=== PATIENT | female | born 1930 | race Caucasian/White ===

== ENCOUNTER 2019-04-13 15:36 | Inpatient (IN) | payer MEDICARE ==
[~2019-04-13] VITALS: Ht 162.5 cm; Wt 69.4 kg
[2019-04-13] MEDS ORDERED: VITAMIN D310000 UNI1 PO (16:47)
[2019-04-13] MEDS ORDERED: ZOCOR10 MG PO (16:48)
[2019-04-13] MEDS ORDERED: EXELON1 EAC1 T (16:48)
[2019-04-13] MEDS ORDERED: COREG12.5 M1 PO (16:49)
[2019-04-13] MEDS ORDERED: DEPAKOTE SPRIN125 MG PO (16:50)
[2019-04-13] MEDS ORDERED: NAMENDA10 MG PO (16:51)
[2019-04-13] MEDS ORDERED: TYLENOL EXTRA500 M2 PO (16:52)
--- NOTE | 2019-04-14 00:20 | NUR ---
MEGAN ANDERSON a 88 year old F admitted via stretcher from the ADMITTING as a voluntary admission. Arrived on unit at 0020. ALLERGIES: NKA. Vital signs are: [id number] 180/88. The client GUARDIAN AGREED TO signed the following forms with stated understanding: Authorization For The Release of Medical Information, Clothing List, Consent to Voluntary Admission and Hospitalization, Consent and Release Forms/Receipt of Rights, Acknowledgement of Advance Directive Information, Behavioral Health Consent Form, and Informed Consent of Medications. Admitted under the services of Dr. RAYMUNDO MULLER,[facility]. A search was conducted and hazardous articles were removed. Client was oriented to the unit. PAWEL ORTIZ
[2019-04-14 00:45] VITALS: BP 180/88
--- NOTE | 2019-04-14 00:45 | NUR ---
DR. PEREZ NOTIFIED OF PT BLOOD PRESSURE,
[2019-04-14 01:00] VITALS: BP 180/76; BP 184/76
--- NOTE | 2019-04-14 01:00 | NUR ---
DR. ABARCA ON UNIT TO SEE PT. INFORMED THAT PT HAD RECIEVED COREG 12.5 AT 1600 AND CATAPRESS 0.[address] OSWALDO Moore WHO STATED THE MEDICATION HAD BEEN EFFECTIVE UPON LEAVING BUILDING FOR EMS TRANSPORT PT T97.9 BP 135/71 P76 16R 98 %SPO2 ON ROOM AIR.
[2019-04-14 01:20] VITALS: BP 160/72
--- NOTE | 2019-04-14 01:50 | NUR ---
PT ANXIOUS TALKING RAPIDLY ON ADMIT IN REFERENCE TO HOW MUCH SHE HATES HER CURRENT FACILITY. "DON'T EVER GO THERE, IT'S [facility], I KNOW WHERE THAT IS AND IT'S HORRIBLE, NOONE HELPS ME, THEY ARE MEAN AND NASTY, I AM SO GLAD I AM OUT OF THERE." SPOKE WITH PT MULTIPLE TIMES TO ATTEMPT TO CALM AND DECREASE ANXIETY, BLOOD PRESSURE CONTINUED TO BE ELEVATED DURING AGIATIONS. ATIVAN GIVEN TO DECREASE ANXIETY
--- NOTE | 2019-04-14 02:04 | NUR ---
PT NOTED TO HAVE EXCORIATION UNDER RIGHT BREAST AND RIGHT GROIN
--- NOTE | 2019-04-14 02:26 | NUR ---
MEGAN ANDERSON [id number] Please refer to the physician's history and physical for past medical history, comorbid conditions, and allergies. Diagnosis: INTERMITTENT EXPLOSIVE DISORDER Dimitri Score: , WOUND DESCRIPTIONS: Wound Number: 1 Location of the wound: Right breast Type of wound: fungal Thickness: Partial Size: 8.6cm x 11.3cm x 0.1cm Tunneling: none Undermining: none Sinus Tract: none Presence of Exudate: Serous Amount: Light Color: Red Odor: Musty Periwound Skin Appearance: Normal Wound edges: approximated Pain (associated with wound): none at time of assessment How does patient state this happened? pt unable to state how this happen Wound Number: 2 Location of the wound: Right abdominal fold Type of wound: fungal Thickness: Partial Size: 4.3cm x 7.4cm x 0.1cm Tunneling: none Undermining: none Sinus Tract: none Presence of Exudate: Serous Amount: Light Color: Red Odor: Musty Periwound Skin Appearance: Normal Wound edges: approximated Pain (associated with wound): none at time of assessment How does patient state this happened? pt unable to state how this happen Wound Number: 3 Location of the wound: Right groin Type of wound: fungal Thickness: Partial Size: 6.0cm x 6.5cm x 0.1cm Tunneling: none Undermining: none Sinus Tract: none Presence of Exudate: Serous Amount: Light Color: Red Odor: Musty Periwound Skin Appearance: Normal Wound edges: approximated Pain (associated with wound): none at time of assessment How does patient state this happened? pt unable to state how this happen Surface the patient is resting on: Proform SKIN PREVENTION RECOMMENDATION: 1. Pressure redistribution support surface as appropriate 2. Elevate heels 3. Remove boots/TEDS every shift and reapply 4. Head of bed 30 degrees as tolerated 5. Assess nutrition and hydration 6. Manage moisture 7. Avoid the use of containment devices while in bed 8. Use absorptive products on surfaces limit layers of linens on bed 9. Turn and reposition every 1-2 hours in bed and every 1 hour in chair as tolerated 10. Weight shifts every 15 minutes while up in chair 11. Offloading with pillows or device to keep heels elevated off bed 12. Monitor skin at least every shift 13. Inspect under medical devices twice a day WOUND TREATMENT RECOMMENDATIONS: Cleanse right breast, right abdominal fold, and right groin with soap and water pat areas dry then apply nystatin powder every 8 hours.
[2019-04-14 02:30] VITALS: BP 120/76
--- NOTE | 2019-04-14 02:30 | NUR ---
DR. ABARCA NOTIFIED OF BLOOD PRESSURE DECREASE SINCE ATIVAN GIVEN. ORDER RECEIVED TO NOT ADMINISTER COREG UNTIL 9AM DOSE CONTINUE TO MONITOR
--- NOTE | 2019-04-14 05:31 | NUR ---
PT SLEPT 4 HOURS +
[2019-04-14 06:29] LABS: BASO % 0.3 % (0.0-1.0); EOS # 0.1 10*3/uL (0.0-0.4); EOS % 0.8 % (1.0-4.0); HEMATOCRIT 37.1 % (37.0-47.0); HEMOGLOBIN 11.5 g/dl (12.0-16.0); LYMPH # 3.7 10*3/uL (1.3-4.4); MEAN CELL VOLUME 94.4 fl (81.0-99.0); MEAN CORPUSCULAR HGB 29.3 pg (27.0-31.0); MEAN PLATELET VOLUME 10.9 fl (9.6-12.3); MONO # 0.6 10*3/uL (0.1-1.0); MONO % 7.2 % (3.0-9.0); NEUT # 3.6 10*3/uL (2.3-7.9); NEUT % 45.7 % (47.0-73.0); PLATELET COUNT AUTOMATED 155 10*3/uL (130-400); RED BLOOD COUNT 3.93 10*6/uL (4.10-5.10); RED CELL DISTRI WIDTH 13.1 % (0-14.5); WHITE BLOOD COUNT 7.9 10*3/uL (4.8-10.8)
[2019-04-14 06:53] LABS: CREATININE 1.12 mg/dL (0.55-1.02); POTASSIUM 3.4 mmol/L (3.5-5.1)
[2019-04-14 06:59] LABS: THYROID STIM HORMONE (HS) 3.23 uIU/ml (0.358-4.75); VALPROIC ACID (DEPAKENE) 5.4 ug/ml (50-100)
[2019-04-14 07:50] LABS: VITAMIN D, 25-HYDROXY 23.8 ng/mL (30-100)
--- NOTE | 2019-04-14 08:00 | NUR ---
Patient resting quietly with no c/o discomfort. Respirations easy and regular. Vital signs stable. No overt distress. ROMULO COTO
--- NOTE | 2019-04-14 08:05 | NUR ---
ON UNIT TO SEE PT AT THIS TIME. UPDATE GIVEN.
[2019-04-14 08:06] VITALS: BP 140/66
--- NOTE | 2019-04-14 10:08 | NUR ---
Dr. Garcia notified of wound care recommendations.
--- NOTE | 2019-04-14 11:47 | NUR ---
AM GROUP/EXERCISE AND KENZIE PT DID NOT ATTEND MORNING GROUP THERAPY. PT WAS IN BED SLEEPING.
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
--- NOTE | 2019-04-14 13:22 | NUR ---
AWARE OF POTASSIUM 3.4
--- NOTE | 2019-04-14 15:37 | NUR ---
PM GROUP PT DID NOT ATTEND AFTERNOON GROUP THERAPY. PT WAS IN BED RESTING. UNABLE TO ASSESS PT TODAY DUE TO HER SLEEPING. WILL ATTEMPT ASSESSMENT TOMORROW AM
--- NOTE | 2019-04-14 15:49 | NUR ---
Treatment Plan meeting was held with HERACLIO Craig, RN, AT, KILN DOOR BUILDER-S and Skirt Maker in attendance. Plan for discharge Next week. Pt. came to [facility] from [place].
--- NOTE | 2019-04-14 18:58 | NUR ---
SHIFT CHART CHECK COMPLETED.
[2019-04-14 19:40] VITALS: BP 164/64
[2019-04-15] VITALS (7 sets, daily range): BP systolic 160–180; BP diastolic 60–90
--- NOTE | 2019-04-15 00:54 | NUR ---
24 HR chart check completed.
--- NOTE | 2019-04-15 04:44 | NUR ---
Upon discharge recommend patient to follow up for wound care in outpatient setting continue current wound care orders at discharging facility.
--- NOTE | 2019-04-15 06:06 | NUR ---
Patient slept approx. 6 hours throughout shift. Q 15 minute safety checks continued and maintained.
[2019-04-15 08:27] LABS: CHOLESTEROL 126 mg/dL (<200); HDL CHOLESTEROL 33 mg/dl (40-60); LDL CHOLESTEROL 77 mg/dL (9-159); TRIGLYCERIDES 78 mg/dl (<150); VLDL CHOLESTEROL 16 mg/dL (6-40)
--- NOTE | 2019-04-15 11:21 | NUR ---
P: IRRITABLE/ANXIOUS, ARGUEMENTATIVE, MEDICATION NON COMPLAINCE. I: ONE ON ONE FOR EMOTIONAL SUPPORT, MEDICATION EDUCATION PROVIDED. ENCOURAGED PATIENT TO TAKE MEDICATION. R: INEFFECTIVE. PATIENT SELECTIVE WITH MEDICAITON, REFUSED DEPAKOTE AND VITAMIN D. PATIENT CONTINUES TO BE ARGUEMENTATIVE REGARDING MEDICATION AND BEING IN THE HOSPITAL. PATIENT IS ALERT TO PERSON, PLACE, TIME AND SITUATION; ABLE TO VOICE NEEDS. Q 15 MINUTE SAFETY CHECKS MAINTAINED. MOOD IS ANGRY/IRRITABLE. DENIES ANY HALLUCINATIONS, DELUSIONS, HI/SI OR PAIN. INTERACTIVE WITH STAFF AND OTHER PATIENTS. PARTICIPATED IN GROUP SESSION. NO ATTEMPTS TO EXIT SEEK. P: CONTINUE TO MONITOR MOOD, MEDICATION COMPLAINCE AND EXIT SEEKING. PROVIDE ONE ON ONE, MEDICATION EDUCATION AND ENCOURAGEMENT TO TAKE MEDICINE.
--- NOTE | 2019-04-15 11:45 | NUR ---
AM GROUP PT ATTENDED MORNING GROUP THERAPY AND PARTICIPATED BY COLORING FOR A FEW MINUTES. PT WAS AGITATED AT THE START OF GROUP STATING, "SO YOU'RE THE ONE THAT'S GOING TO FIX ME? THEY KEEP GIVING ME THIS PILL THAT TAKES AWAY MY MEMORY, I'M NOT GOING TO TAKE IT ANYMORE"
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
--- NOTE | 2019-04-15 15:01 | NUR ---
P: DELUSIONALS STATEMENT WITH PARANOIA. MANUAL BP 160/90. LISINOPRIL ORDERED. TALKED WTIH PATIENT AND PROVIDED EDUCATION. PATIENT STATED. "I NEVER MET THAT DOCTOR, HE IS NOT MY DOCTOR. HE DOESN'T KNOW WHAT HE IS TALKING ABOUT, I'M NOT TAKING ANYMORE MEDICATIONS. I WENT TO SCHOOL WITH HIM" AFTER EDUCATION PROVIDED REGARDING BLOOD PRESSURE. PATIENT STATED "LET ME SEE THAT PILL, OKAY I WILL TAKE IT, BUT I WILL NOT TAKE ANY OF THOSE BLUE AND WHITE PILLS." IN GROUP SESSION, PATIENT SOCIALIZING WITH OHTER PATIENTS, DURING CONVERSATIONS PATIENT WOULD EXAGGERATE AND CONFABULATE. I: ONE ON ONE EDUCATION PROVIDED. ENCOURAGEMENT MEDICATION COMPLAINCE. REORIENT TO PLACE AND TIME. R: EFFECTIVE. PATIENT TOOK MEDICATIONS. P: CONTINUE TO MONITOR FOR HALLUCINATIONS, DELUSIONS, PARANIOA, MEDICATION COMPLIANCE. PROVIDE ONE ON ONE, REDIRECTION NEEDED.
--- NOTE | 2019-04-15 15:48 | NUR ---
PM GROUP PT ATTENDED AFTERNOON GROUP THERAPY AND PARTICIPATED IN ALL ACTIVITIES. PT WAS QUIET AND ON TASK FOR THE MOST PART BUT AT THE END OF GROUP BECAME HYPERVERBAL AND KEPT STATING, "I KNOW, I SHOULDN'T BE TALKING TO YOU, I JUST NEED TO SHUT MY MOUTH, THAT'S WHAT GOT ME HERE! I KNOW THEY DON'T WANT ME TALKING TO YOU ABOUT [place]!"
--- NOTE | 2019-04-15 15:55 | NUR ---
Shift chart check completed.
--- NOTE | 2019-04-15 16:00 | NUR ---
DR. DIAZ NOTIFIED OF MANUAL BP OF 180/76. VERBAL ORDER TO RECHECK BLOOD PRESSURE IN ONE HR.
--- NOTE | 2019-04-15 16:20 | NUR ---
P: DELUSIONAL STATEMENTS VOICED WITH PARANOIA. PATIENT STATED "I WAS IN CHAINS, IN PRISION THERE AT [place]. NURSE WAS GOING TO GIVE ME A PILL TO STOP MY HEART, GOT A SETHOSCROPE TO LISTEN FOR NO HEART BEAT. AT 330 I WAS GIVEN A PILL AND MY HEART IS BEATING NOW. THAT NURSE THERE WAS FIRED" I: ONE ON ONE FOR EMOTIONAL SUPPORT. REDIRECTION/ORIENTATION PROVIDED AND PROVIDED SPACE. R: EFFECTIVE. ONE ON ONE AND PROVIDING SPACE EFFECTIVE. P:CONTINUE TO MONITOR FOR VOICED DELUSIONS AND BLOOD PRESSURE. PROVIDE ONE ON ONE, REDIRECTION AND PROVIDE SPACE.
--- NOTE | 2019-04-15 17:15 | NUR ---
MANUAL BP 180/90. DR. DIAZ NOTIFIED.
--- NOTE | 2019-04-15 17:27 | NUR ---
DR DIAZ CALLED BACK WITH NEW ORDERS AND TO RECHECK BP IN 1 HR.
[2019-04-15 22:02] LABS: BILIRUBIN NEGATIVE (NEGATIVE); BLOOD TRACE-LYSED (NEGATIVE); CLARITY CLEAR (CLEAR); COLOR YELLOW (YELLOW); GLUCOSE NEGATIVE (NEGATIVE); KETONE NEGATIVE (NEGATIVE)
[2019-04-15 22:03] LABS: LEUKO ESTERASE NEGATIVE (NEGATIVE); NITRITE NEGATIVE (NEGATIVE); UROBILINOGEN 0.2 E.U./dl (0.2-1.0)
[2019-04-15 22:04] LABS: EPITHELIAL CELLS 0-2
--- NOTE | 2019-04-16 00:15 | NUR ---
24 HR chart check completed.
--- NOTE | 2019-04-16 01:37 | NUR ---
P-LABILE, IRRITABLE, NON COMPLAINCE WITH MEDICATIONS I-PROVIDE EMOTIONAL SUPPORT & MEDICATION EDUCATION, ADMINISTER MEDS, MONITOR SLEEP R-PT ALERT & ORIENTED X 4. LABILE MOOD. IRRITABLE & LOUD TO PLEASANT. SPENT LEISURE TIME TALKING TO A MALE PEER APPROPRIATELY. VERY TALKATIVE. STATED, "NO ONE LIKES ME. I DONT HAVE ANY FRIENDS". ARGUMENTATIVE INITIALLY. REFUSED HS DEPAKOTE & STATED, "I GET A TIZZY & SHAKE ALL OVER. I'M NOT TAKING THAT. NOPE". TOOK ALL OTHER HS MEDS. ABULATES INDEPENDENTLY. ATE SNACK. IS INDEPENDENT WITH AMBULATION & TOILETING. P-CONTINUE TO MONITOR & PROVIDE PHYSICAL & EMOTIONAL SUPPORT NEEDED.
--- NOTE | 2019-04-16 05:12 | NUR ---
PT HAS SLEPT PAST 2214
[2019-04-16 08:00] VITALS: BP 125/63
--- NOTE | 2019-04-16 08:14 | NUR ---
DR CROOK ON UNIT TO SEE PATIENT
--- NOTE | 2019-04-16 08:15 | NUR ---
Treatment Plan meeting was held with Dr. Schmid, RN, AT, HYDROELECTRIC OPERATOR-S and Frame Coverer. Plan for discharge next week. Pt. to return to [place].
--- NOTE | 2019-04-16 15:18 | NUR ---
P-HYPERVERBAL I-REDIRECTION WITH 1:1 THERAPEUTIC INTERVENTIONS AND PRESENT REALTIY. EDUCATE AND ENCOURAGE MEDICATION COMPLIANCE R-PATIENT MEDICATION COMPLIANT EXCEPT FOR REFUSING DEPAKOTE THIS AM. PATIENT HYPERVERBAL AND INTERACTING WITH PEERS IN DINING AREA. PATIENT PARTICIPATING IN GROUP THERAPY. PATIENT WITH NO HALLUCINATIONS OR DELUSIONS. PATIENT WITH NO SUICIDAL OR HOMICIDAL IDEATIONS. P-CONTINUE TO ENCOURAGE MEDICATION COMPLAINCE, CONTINUE TO PRESENT REALITY, ENCOURAGE GROUP THERAPY WHILE AWAKE
--- NOTE | 2019-04-16 15:49 | NUR ---
PM GROUP PT WAS PRESENT FOR AFTERNOON GROUP THERAPY AND PARTICIPATED BY DOING A WORDSEARCH AND COLORING. PT WAS FOCUSED AND ON TASK. PT WAS NOT HYPERVERBAL PREVIOUSLY, IN FACT WAS QUITE CONTENT TO LISTEN TO MUSIC AND COLOR. PT EXHIBITED NO AGGRESSIVE BEHAVIORS WHILE IN GROUP
[2019-04-16 19:49] VITALS: BP 136/64
--- NOTE | 2019-04-16 19:58 | NUR ---
24 HR chart check completed.
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
--- NOTE | 2019-04-17 05:51 | NUR ---
PT HAS SLEPT PAST 2314
[2019-04-17 08:00] VITALS: BP 129/75
--- NOTE | 2019-04-17 08:00 | NUR ---
Treatment Plan meeting was held with HERACLIO Craig RN, SUSTAINABLE SYSTEMS ANALYST-S and Commercial Roofer. Plan for discharge Next week. Pt. will return to [facility].
--- NOTE | 2019-04-17 09:30 | NUR ---
DR CROOK ON UNIT TO SEE PATIENT
--- NOTE | 2019-04-17 12:43 | NUR ---
P-HYPERVERBAL, IRRITABLE I-REDIRECTION WITH 1:1 THERAPEUTIC INTERVENTIONS AND PRESENT REALTIY. EDUCATE AND ENCOURAGE MEDICATION COMPLIANCE R-PATIENT MEDICATION COMPLIANT EXCEPT FOR REFUSING DEPAKOTE THIS AM. PATIENT HYPERVERBAL AND INTERACTING WITH PEERS IN DINING AREA. PATIENT IRRITABLE AT TIMES BUT REDIRECTABLE. PATIENT PARTICIPATING IN GROUP THERAPY. PATIENT WITH NO HALLUCINATIONS OR DELUSIONS. PATIENT WITH NO SUICIDAL OR HOMICIDAL IDEATIONS. P-CONTINUE TO ENCOURAGE MEDICATION COMPLAINCE, CONTINUE TO PRESENT REALITY, ENCOURAGE GROUP THERAPY WHILE AWAKE
--- NOTE | 2019-04-17 15:55 | NUR ---
Clinical Updates faxed to [facility].
[2019-04-17 19:31] VITALS: BP 135/66
--- NOTE | 2019-04-17 19:56 | NUR ---
24 HR chart check completed.
--- NOTE | 2019-04-17 21:48 | NUR ---
P-HYPERVERBAL I-PROVIDE EMOTIONAL SUPPORT & MEDICATION EDUCATION, ADMINISTER MEDS, MONITOR SLEEP R-PT ALERT & ORIENTED X 4. MOOD IS MUCH CALMER & PLEASANT. PT STATED, "I'M FEELING REALLY GOOD. THIS IS THE BEST DAY I'VE HAD. I'M FEELING SO MUCH BETTER." HYPERVERBAL INTERMITTENTLY. NO CONFABULATION NOTED THIS EVENING. SAT IN THE DINING ROOM WITH PEERS QUIETLY LISTENING TO MUSIC. ATE SNACK. COMPLIANT WITH MEDICATIONS. AMBULATES INDEPENDENTLY WITH WALKER. SHOWERED WITH 1 STAFF ASSSIST. P-CONTINUE TO MONITOR & PROVIDE PHYSICAL & EMOTIONAL SUPPORT NEEDED.
--- NOTE | 2019-04-18 05:57 | NUR ---
PT HAS HAD INTERMITTENT AWAKENINGS & SLEPT FROM [id number].
[2019-04-18 08:00] VITALS: BP 149/79
--- NOTE | 2019-04-18 12:11 | NUR ---
AM GROUP/EXERCISES/BINGO/CRAFT PT ATTENDED AND PARTICIPATED IN EXERCISE AND CRAFT, BUT NAPPED IN BETWEEN DURING BINGO. PT PLEASANT AND ON TASK WITH NO AGGRESSION OR ANXIETY EXPRESSED. PT WILL CONITNUE OT ATTEND AN DPARTICIPATE IN FUTURE GROUP SESSIONS TO BEST OF PT ABILITY.
--- NOTE | 2019-04-18 15:59 | NUR ---
PM GROUP/RIDDLES/CRAFT PT ATTENDED AND PARTICIPATED SOME BY7 COLORING, BUT SOON FELL ASLEEP. PT PLEASANT WITH NO ANXIETY OR AGGRESSION EXPRESSED AT THIS TIME. PT WILL CONTINUE OT ATTEND AN DPARTICIPATE IN FUTURE GROUP SESSIONS TO BEST OF PT ABILITY.
--- NOTE | 2019-04-18 16:47 | NUR ---
PT PREOCCUPIED WITH MEDICATIONS. STATES "WHAT ARE THEY DOING TO ME. I AM WORSE THAN WHEN I GOT HERE". PT BECOMING HOPELESS/HELPLESS. PT ENCOURAGED TO PARTICIPATE IN ADL'S, ENCOURAGED TO VERBALIZE FEELINGS. PT PERFORMED ADL'S INDEPENDENTLY WITH STAFF STANDBY ASSIST. PT ADAMANT THAT PILLS ARE "DOPING HER UP" DESPITE EDUCATION. WILL CONTINUE TO MONITOR PT'S CONDITION AND MONITOR ANY ADVERSE EFFECTS OF MEDICATION. WILL CONTINUE TO MONITOR Q15 MIN PER POLICY.
[2019-04-18 20:00] VITALS: BP 158/80
--- NOTE | 2019-04-18 23:08 | NUR ---
P-PARANOID, PREOCCUPIED, SOMATIC I-REDIRECTION WITH 1:1 THERAPEUTIC INTERVENTIONS AND PRESENT REALTIY. EDUCATE AND ENCOURAGE MEDICATION COMPLIANCE R-PATIENT MEDICATION COMPLIANT AT HS. PATIENT HYPERVERBAL AT TIMES AND REDIRECTED WITH EFFECTIVE RESULTS THROUGHOUT SHIFT. PATIENT SOMATIC PARANOID, AND PREOCCUPIED THROUGHOUT SHIFT. PATIENT ATTEMPTING TO GO BACK TO OLD ROOM STATING "SHE DOESN'T LIKE ME, I'M JUST GOING TO GO BACK TO THE OTHER ROOM". ATTEMPTS MADE TO REDIRECT PATIENT IN BED. PATIENT IN GERICHAIR IN QUIET AREA TO ALLOW PATIENT TO REST WITH BODY ALARM ATTACHED. PATIENT PROVIDED NOURISHMENT AND FLUIDS AT HS. PATIENT WITH NO SUICIDAL OR HOMICIDAL IDEATIONS. P-CONTINUE TO ENCOURAGE MEDICATION COMPLAINCE, CONTINUE TO PRESENT REALITY, ENCOURAGE GROUP THERAPY WHILE AWAKE
--- NOTE | 2019-04-19 05:51 | NUR ---
PATIENT SLEPT 4-5 HOURS OF INTERRUPTED SLEEP THROUGHOUT SHIFT. Q 15 MINUTE CHECKS MAINTAINED. 24 HR chart check completed.
[2019-04-19 08:00] VITALS: BP 132/67
[2019-04-19 15:02] LABS: BASO % 0.2 % (0.0-1.0); EOS % 0.2 % (1.0-4.0); HEMATOCRIT 40.1 % (37.0-47.0); LYMPH # 1.1 10*3/uL (1.3-4.4); LYMPH % 20.6 % (27.0-41.0); MEAN CELL VOLUME 94.1 fl (81.0-99.0); MEAN CORPUSCULAR HGB 30.5 pg (27.0-31.0); MEAN CORPUSCULAR HGB CONC 32.4 g/dl (33.0-37.0); MEAN PLATELET VOLUME 11.1 fl (9.6-12.3); MONO # 0.6 10*3/uL (0.1-1.0); MONO % 10.3 % (3.0-9.0); NEUT # 3.7 10*3/uL (2.3-7.9); NEUT % 68.5 % (47.0-73.0); PLATELET COUNT AUTOMATED 148 10*3/uL (130-400); RED BLOOD COUNT 4.26 10*6/uL (4.10-5.10); RED CELL DISTRI WIDTH 13.2 % (0-14.5); WHITE BLOOD COUNT 5.3 10*3/uL (4.8-10.8)
[2019-04-19 15:18] LABS: BUN 20 mg/dl (7-24); CHLORIDE 107 mmol/L (98-107); CREATININE 1.04 mg/dL (0.55-1.02); POTASSIUM 4.2 mmol/L (3.5-5.1); SODIUM 141 mmol/L (136-145)
--- NOTE | 2019-04-19 15:30 | NUR ---
DR. MARCH MADE AWARE OF LAB AND CXR RESULTS
[2019-04-19 20:19] VITALS: BP 136/86
--- NOTE | 2019-04-20 01:26 | NUR ---
24 HR chart check completed.
--- NOTE | 2019-04-20 02:48 | NUR ---
P- PARANOID, SOMATIC I- 1:1 REDIRECTION... PRESENT REALITY, EDUCATE ON MED COMPLIANCE. R-REDIRECTED TO NEW BEDROOM.aMBULATES WITH A WALKER. IS PRE OCCUPIED ABOUTNOT GETTING SICK AGTER SHE TAKES HER MEDS. NO S/I, H/I/. NO DELUSIONS. P- CONTINUE TO BE MED COMPLIANT AND ENCOURAGED TO VERBALIZE THINGS,
--- NOTE | 2019-04-20 05:34 | NUR ---
PATIENT SLEPT OVER 8 HOURS LAST NIGHT
[2019-04-20 07:59] VITALS: BP 107/81
--- NOTE | 2019-04-20 08:00 | NUR ---
Treatment Plan meeting was held with Dr. Schmid, HERACLIO Craig, RN, AT, CORPORATE COORDINATOR-S and Slide Fasteners Inspector. Plan for discharge Saturday. Pt. is LTC at [place].
--- NOTE | 2019-04-20 11:58 | NUR ---
AM GROUP MORNING GROUP THERAPY WAS SHORTENED DUE TO PT 1:1. PT WAS PRESENT IN THE DAYROOM SITTING AT A TABLE AND BUSING HERSELF COLORING. PT IS PLEASANTLY CONFUSED AND SPENT SOME TIME "TALKING" WITH A PEER BEFORE LEAVING THE DAYROOM. PT DID NOT RETURN.
--- NOTE | 2019-04-20 12:09 | NUR ---
Spoke with Mikayla Harper Field Reporter at [facility]. Discussed Discharge Plan and Possible Discharge Saturday. Faxed Clinical Updates to faxed to facility.
--- NOTE | 2019-04-20 15:46 | NUR ---
PM GROUP PT ATTENDED AFTERNOON GROUP THERAPY AND PARTICIPATED BY DOING WORDSEARCH AND SOCIALIZING WITH A PEER. PT EXPRESSED NO SUICIDAL IDEATIONS WHILE IN GROUP.
--- NOTE | 2019-04-20 16:16 | NUR ---
UPDATED ON NEED FOR ORDER FOR WOUNDS. STATED PT'S SISTER IS BRINGING IN [place] AND WILL BE SENT TO PHARMACY. CALL DR WHEN THIS IS BROUGHT TORSTEN TO HAVE THE DR PLACE THE ORDER.
--- NOTE | 2019-04-20 17:33 | NUR ---
NO ADVERSE MOODS OR BEHAVIORS NOTED THIS SHIFT. MEDICATION COMPLIANT WITHOUT DIFFICULTY. BEHAVIORS MONITORED WITH Q15 MINUTE SAFETY CHECKS. SEE [facility] FLOWSHEET FOR SPECIFIC MONITORING.
[2019-04-20 19:51] VITALS: BP 149/70
--- NOTE | 2019-04-20 20:09 | NUR ---
24 HR chart check completed.
--- NOTE | 2019-04-20 20:50 | NUR ---
EVENING/POSITIVE SELF-TALK PT IN ATTENDNACE BUT DID NOT PARTICIPATE DUE TO LEVELS OF COGNITION. PT SITTING AT BACK OF ROOM OBSERVING PEERS. PT WILL CONTINUE TO ATTEND AN DBE ENCOURAGED OT PARTICIPATE TO BEST OF PT ABILITY.
--- NOTE | 2019-04-21 01:05 | NUR ---
P-HYPERVERBAL I-PROVIDE EMOTIONAL SUPPORT & MEDICATION EDUCATION, ADMINISTER MEDS, MONITOR SLEEP R-PT ALERT & ORIENTED X 3. PLEASANT. REMAINED IN THE DINING ROOM DURING GROUP BUT SAT BACK QUIETLY IN A CHAIR & WATCHED OTHER PEERS. PT STATED, "THIS IS THE BEST DAY I'VE HAD YET". INTRODUCED HERSELF TO A NEW PEER & WAS NOTED TO BE HYPERVERBAL & TANGENTIAL. ATE SNACK. COMPLIANT WITH MEDS. AMBULATES INDEPENDENTLY WITH WALKER. P-CONTINUE TO MONITOR & PROVIDE PHYSICAL & EMOTIONAL SUPPORT NEEDED.
--- NOTE | 2019-04-21 05:14 | NUR ---
SLEPT HAS SLEPT PAST 2229
--- NOTE | 2019-04-21 07:00 | NUR ---
MEGAN ANDERSON [id number] Please refer to the physician's history and physical for past medical history, comorbid conditions, and allergies. Diagnosis: INTERMITTENT EXPLOSIVE DISORDER Dimitri Score: 21,LOW OR NO RISK WOUND DESCRIPTIONS: Wound Number: 1 Right breast no open areas noted at time of assessment. No drainage noted at time of assessment to right breast. Area is pink in color. No odor noted at time of assessment. Wound Number: 2 Right abdominal fold no open areas noted at time of assessment. No drainage noted at time of assessment to right abdominal fold. Area is pink in color. No odor noted at time of assessment. Wound Number: 3 Location of the wound: Right groin Type of wound: fungal Thickness: Partial Size: 2.0cm x 1.0cm x 0.1cm Tunneling: none Undermining: none Sinus Tract: none Presence of Exudate: Serous Amount: Light Color: Red Odor: Musty Periwound Skin Appearance: Normal Wound edges: approximated Pain (associated with wound): none at time of assessment How does patient state this happened? pt unable to state how this happen Surface the patient is resting on: Proform SKIN PREVENTION RECOMMENDATION: 1. Pressure redistribution support surface as appropriate 2. Elevate heels 3. Remove boots/TEDS every shift and reapply 4. Head of bed 30 degrees as tolerated 5. Assess nutrition and hydration 6. Manage moisture 7. Avoid the use of containment devices while in bed 8. Use absorptive products on surfaces limit layers of linens on bed 9. Turn and reposition every 1-2 hours in bed and every 1 hour in chair as tolerated 10. Weight shifts every 15 minutes while up in chair 11. Offloading with pillows or device to keep heels elevated off bed 12. Monitor skin at least every shift 13. Inspect under medical devices twice a day WOUND TREATMENT RECOMMENDATIONS: cleanse right groin with soap and water pat area dry then apply nystatin powder 8 hours.
[2019-04-21 07:50] VITALS: BP 144/61
--- NOTE | 2019-04-21 08:00 | NUR ---
Treatment Plan meeting was held with Dr. Schmid, RN, AT, RESEARCH STUDY ASSISTANT-S and Maintenance Welder. Plan for discharge Saturday. Pt. will return to [facility].
--- NOTE | 2019-04-21 09:05 | NUR ---
DR MINA ON UNIT TO ASSESS PT, UPDATE PROVIDED.
--- NOTE | 2019-04-21 10:41 | NUR ---
PT REFUSED TO BE CHECKED FOR THE FLU. PT STATED "I DONT HAVE THE FLU, I HAVE A BROKEN HEART" "I DONT FEEL LIKE ANY TESTS RIGHT NOW WILL DO ME ANY GOOD. I THINK I LOST 20 POUNDS. THE FAT JUST FELL OFF"
--- NOTE | 2019-04-21 10:56 | NUR ---
P: DEPRESSED MOOD. PT STATING SHE FEELS TERRIBLE BECAUSE SHE WASNT TOLD THE RULES. PT STATED SHE FELL APART BECAUSE THE [place] TOOK EVERYTHING FROM HER. I: PROVIDED 1:1 FOR THERAPEUTIC COMMUNICATION. ENCOURAGED MEDICATION COMPLAINCE. ENCOURAGED PT TO ATTEND/PARTICIPAT IN GROUP. PROVIDED MEDICATION EDUCATION. R: MEDICATION COMPLIANT WITH SEVERAL PROMPTS. PT SAT WITH THIS NURSE AND TALKED ABOUT HER PAST. EDUCATED ON MEDICATIONS, PT VERBALIZED UNDERSTANDING. PT REFUSED TO GO TO GROUP. P: CONTINUE TO ENCOURAGE MEDICATION COMPLIANCE AND ENCOURAGE PT TO ATTEND/PARTICIPATE IN GROUP. CONTINUE EDUCATE ON MEDICATIONS. SEE [facility] FOR SPECIFIC MONITORING.PT COMPLAINING ABOUT SOMEONE FROM HER PAST TAKING ALL HER BELONGINGS. PT STATED SHE DOESNT HAVE ANY TEETH, OR EYES AND CANT DANCE ALL BECAUSE SHE WANTED TO BE A NICE PERSON.
--- NOTE | 2019-04-21 11:43 | NUR ---
AM GROUP/MUSIC THERAPY PT DID NOT ATTEND MORNING GROUP THERAPY. PT WAS IN BED RESTING.
--- NOTE | 2019-04-21 15:41 | NUR ---
PM GROUP PT DID NOT ATTEND AFTERNOON GROUP THERAPY. PT WAS IN BED NAPPING.
--- NOTE | 2019-04-21 19:44 | NUR ---
24 HR chart check completed.
[2019-04-21 19:53] VITALS: BP 144/82
--- NOTE | 2019-04-21 20:43 | NUR ---
EVENING/MUSIC/YAHTZEE! PT ATTENDED GROUP BUT PARTICIPATED BY WORKING WORDSEARCH PUZZLES ENTIRE GROUP. PT EXPRESSES NO S.I. OR SOMATIC COMPLAINTS AT THIS TIME. PT WILL CONTINUE TO ATTEND AND PARTICIPATE TO BEST OF PT ABILITY.
--- NOTE | 2019-04-21 23:15 | NUR ---
P-DEPRESSED I-PROVIDE EMOTIONAL SUPPORT & MEDICATION EDUCATION, ADMINISTER MEDS, MONITOR SLEEP R-PT ALERT & ORIENTED X 3. PLEASANT. REMAINED IN THE DINING ROOM DURING GROUP BUT SAT BACK QUIETLY IN A CHAIR & WATCHED OTHER PEERS. PT STATED, "EVERYONE IS BEING SO GOOD TO ME HERE. I'M JUST FEELING SAD TODAY. I THINK PEOPLE DON'T LIKE ME SOMETIMES." PT WAS QUIET THIS EVENING & KEPT TO HERSELF. ATE SNACK. COMPLIANT WITH MEDS. HAS BEEN SITTING IN A WHEELCHAIR BUT PROMPTED TO AMBULATE INDEPENDENTLY WITH STAFF STANDING BY. P-CONTINUE TO MONITOR & PROVIDE PHYSICAL & EMOTIONAL SUPPORT NEEDED.
--- NOTE | 2019-04-22 03:57 | NUR ---
Upon discharge recommend patient to follow up for wound care in outpatient setting continue current wound care orders at discharging facility.
--- NOTE | 2019-04-22 05:12 | NUR ---
PT HAS SLEPT PAST 2314
[2019-04-22 07:57] VITALS: BP 119/48
--- NOTE | 2019-04-22 08:00 | NUR ---
Patient resting quietly with no c/o discomfort. Respirations easy and regular. Vital signs stable. No overt distress. ROMULO COTO ON UNIT TO SEE PT AT THIS TIME. UPDATE GIVEN.
--- NOTE | 2019-04-22 08:00 | NUR ---
Treatment Plan meeting was held with Dr. Schmid RN, ROTARY SLICING MACHINE OPERATOR-S and General Counselor. Plan for discharge Saturday with Return to [facility].
--- NOTE | 2019-04-22 08:30 | NUR ---
ON UNIT TO SEE PT AT THIS TIME.
--- NOTE | 2019-04-22 15:45 | NUR ---
P- MILD CONFUSION AND ST MEMORY GAPS NOTED. PT STATES "I FEEL MUCH BETTER TODAY THAN YESTERDAY, YESTERDAY WHEN I WOKE UP I THOUGHT I HAD ". I- ORIENTATION, MOOD AND BEHAVIORS ASSESSED. ASSESSED PT FOR SI/HI, INTENT OR PLAN. ASSESSED PT FOR S/S HALLUCINATIONS, PARANOIA AND/OR DELUSIONS. MEDICATIONS ADMINISTERED PER PHYSICIAN'S ORDERS. ASSISTANCE WITH ADL CARE PROVIDED NEEDED. ENCOURAGED PT TO ATTEND AND PARTICIPATE IN [facility] GROUPS AND ACTIVITIES. R- PT IS ALERT AND ORIENTED X3. PT STATES "I'M IN [facility], THE YEAR IS 2020 AND KLEVER IS THE PRESIDENT". MILD CONFUSION/ST MEMORY GAPS NOTED. PT DENIES SI/HI, INTENT OR PLAN. PT DENIES HALLUCINATIONS, NO RESPONSE TO INTERNAL STIMULI NOTED. PT STATES SHE IS FEELING "MUCH BETTER TODAY THAN YESTERDAY, YESTERDAY WHEN I WOKE UP I THOUGHT I HAD . BUT THAT NURSE AND HER FRIENDS PULLED ME OUT OF IT AND I'M MUCH BETTER TODAY". PT IS MED COMPLIANT WITHOUT DIFFICULTY. INTERACTS APPROPRIATELY WITH STAFF AND PEERS. NO AGGRESSIVE BEHAVIORS DISPLAYED. NO DISTRESS NOTED. P- PLAN TO CONTINUE CURRENT TREATMENT, CONTINUE TO MONITOR MOOD AND BEHAVIORS, PROVIDE APPROPRIATE REORIENTATION, REDIRECTION AND 1:1 NEEDED. CONTINUE TO ENCOURAGE MEDICATION COMPLIANCE WELL GROUP ATTENDANCE AND PARTICIPATION.
--- NOTE | 2019-04-22 16:27 | NUR ---
SHIFT CHART CHECK COMPLETED.
[2019-04-22 19:49] VITALS: BP 112/52
--- NOTE | 2019-04-22 21:00 | NUR ---
pt medication compliant. preoccupied with feeling well. pt repeats "i'm okay now", "everybody is telling me i'm okay", "my blood pressure was low". pt reassured and educated on medications. pt receptive, verbalizes understanding on medications. will continue to provide reassurance, monitor pt's condition, and provide education on medications and treatment plan. q15 min monitoring for safety.
--- NOTE | 2019-04-23 05:43 | NUR ---
pt slept approximately 6 hours this shift
--- NOTE | 2019-04-23 08:00 | NUR ---
Treatment plan meeting was held with Dr. Schmid, RN, AT, CRTT-S and Mountain Bike Guide. Plan for discharge Saturday.
[2019-04-23 08:27] VITALS: BP 136/68
--- NOTE | 2019-04-23 11:55 | NUR ---
AM GROUP PT WAS PRESENT FOR MORNING GROUP THERAPY SITTING AT A TABLE SLEEPING. PT WAS CHECKED ON AND STATED, "I'M OKAY, JUST REALLY TIRED." PT WENT BACK TO SLEEP. PT EXPRESSED NO SUICIDAL IDEATIONS WHILE IN GROUP.
--- NOTE | 2019-04-23 15:11 | NUR ---
Spoke with Mikayla at [facility]. Notified of Plans to discharge Patient Saturday. Clinical Updates faxed to Facility.
--- NOTE | 2019-04-23 15:46 | NUR ---
PM GROUP PT WAS PRESENT FOR AFTERNOON GROUP THERAPY SITTING IN A COMFY CHAIR AT THE BACK OF THE ROOM. PT EITHER NAPPED OR TALKED TO [facility] DURING GROUP. PT WAS PLEASANT BUT CONFUSED. PT EXPRESSED NO SUICIDAL IDEATIONS WHILE IN GROUP.
--- NOTE | 2019-04-23 18:08 | NUR ---
NO ADVERSE MOODS OR BEHAVIORS. PT IS ALERT AND ORIENTED WITH PERIODS OF MILD CONFUSION AT TIMES. MOOD STABLE, AFFECT IS BROAD RANGE AND APPROPRIATE. SPEECH IS WNL AND COHERENT, ABLE TO MAKE NEEDS KNOWN WITHOUT DIFFICULTY. PT DENIES SI/HI, INTENT OR PLAN. PT DENIES HALLUCINATIONS, NO RESPONSE TO INTERNAL STIMULI NOTED. NO PARANOIA OR DELUSIONS NOTED. MED COMPLIANT WITHOUT DIFFICULTY. INTERACTS WELL WITH STAFF AND PEERS. NO DISTRESS NOTED. PLAN TO CONTINUE CURRENT TREATMENT PLAN.
[2019-04-23 20:09] VITALS: BP 146/78
--- NOTE | 2019-04-23 22:58 | NUR ---
P-PT STATING "IM REALLY ANXIOUS BECAUSE OF THE DINNER I GOT TODAY WAS GARBAGE". I-PROVIDE 1:1 WITH THERAPEUTIC INTERVENTIONS. PROVIDE SUPPORT. REITERATE THE USE OF COPING SKILLS TO HELP CALM. ENCOURAGE MEDICATION COMPLIANCE AND EDUCATE. MONITOR SLEEP. R-PT ALERT AND ORIENTED X4. PT WITH CALM DEMEANOR AND FLAT AFFECT DURING 1:1, VERBALIZED ON MULTIPLE OCCASIONS THAT SHE "FEELS ANXIOUS" BECAUSE OF THE DINNER SHE RECEIVED. PT ENCOURAGED TO PARTICIPATE WITH HER MEAL PLAN DURING THE DAY. PT ALSO ENCOURAGED TO USE DIFFERENT CALMING TECHNIQUES TO HELP SELF SOOTH (DEEP BREATHING, WARM BLANKETS, LOW STIMULI ENVIRONMENT). PT RECEPTIVE TO INTERVENTIONS AND IS CURRENTLY LAYING DOWN WITH EYES CLOSED, NO FURTHER COMPLAINTS OF ANXIETY NOTED. PT DENIES SI/HI, HALLUCINATIONS, OR PAIN. NO PARANOIA/DELUSIONS OBSERVED. MEDICATION COMPLIANT WITHOUT DIFFICULTY AFTER REVIEW. PT AMBULATORY WITH A WHEELED WALKER, GAIT STEADY. PT INDEPENDENT WITH ADL'S WITH STAND BY ASSIST, CONTINENT OF BOWEL AND BLADDER. NO SIGNS OR SYMPTOMS OF DISTRESS NOTED. P-CONTINUE TO MONITOR MOOD AND BEHAVIORS. PROVIDE 1:1 WITH SUPPORT NEEDED. ENCOURAGE MEDICATION COMPLIANCE AND EDUCATE. MAINTAIN Q 15 MIN CHECKS.
--- NOTE | 2019-04-23 23:45 | NUR ---
24 HOUR CHART CHECK COMPLETED.
--- NOTE | 2019-04-24 05:55 | NUR ---
PATIENT OBSERVED ON Q 15 MIN CHECKS TO HAVE SLEPT APPROX 6 HOURS WITH NO AWAKENINGS OR SIGNS AND SYMPTOMS OF DISTRESS NOTED.
[2019-04-24 07:50] VITALS: BP 126/63
[2019-04-24] MEDS ORDERED: EXELON13.3 MG/21 T (07:50)
[2019-04-24] MEDS ORDERED: FANAPT4 MG PO (07:53)
--- NOTE | 2019-04-24 08:00 | NUR ---
Treatment Plan meeting was held with HERACLIO Craig RN, AT, PATTERN ROOM ATTENDANT-S and Vice President Sales And Marketing. Plan for discharge today with return to [facility].
--- NOTE | 2019-04-24 08:05 | NUR ---
Patient in dining room eating with no c/o discomfort. Respirations easy and regular. Vital signs stable. No overt distress. TALAT MCCLELLAN
[2019-04-24] MEDS ORDERED: LISINOPRIL20 MG PO (10:58)
--- NOTE | 2019-04-24 11:30 | NUR ---
Transportation arranged with [facility] to Transport with Data Capture Clerk 1:00 p.m. Nursing Staff Notified and Call Made to [facility] and Notified of Plans to discharge today. [facility] is currently on Vacation but will follow with the facility once patient arrives.
--- NOTE | 2019-04-24 11:55 | NUR ---
AM GROUP/KENZIE PT WAS PRESENT FOR MORNING GROUP THERAPY SEATED AT A TABLE WITH PEERS. PT WAS SLEEPING AND DID NOT WAKE DURING GROUP. PT IS SET TO BE DISCHARGED FROM THE UNIT THIS AFTERNOON.
--- NOTE | 2019-04-24 12:27 | NUR ---
PT REFUSED DISCHARGE PHOTOS STATING SHE WAS TIRED AND WANTED TO SIT UNTIL THE AMBULANCE GOT HERE.
--- NOTE | 2019-04-24 12:53 | NUR ---
PT OFF UNIT AT THIS TIME VIA [email or web address]. ALL BELONGINGS AND DISCHARGE PAPERWORK SENT WITH PT AT THIS TIME. NURSE TO NURSE REPORT GIVEN TO AMY CLEMENTE [facility].
--- NOTE | 2019-04-24 14:38 | NUR ---
AM group session co-facilitated with Caroline, patient case coordinator. Topic of group: More's Day, types of love, and self-love/self-care. Pt was present but slept throughout the discussion.
--- NOTE | 2019-04-24 14:41 | NUR ---
Patient discharged today to [facility]. Follow-up will be with Dr Schmid, visiting psychiatrist. While at [facility], pt's mood and behaviors improved. Pt was pleasant and cooperative. She interacted with peers and participated in programming.
== END 2019-04-24 12:53 | DRG 883 ==
LOC: 3N 15:36
PROVIDERS: Hospitalist; ADMIT Psychiatry & Neurology Psychiatry
DX: F63.81 Intermittent explosive disorder (principal); F02.81 Dementia in other diseases classified elsewhere, unspecified severity, with behavioral disturbance; E87.6 Hypokalemia; G30.9 Alzheimer's disease, unspecified; F33.3 Major depressive disorder, recurrent, severe with psychotic symptoms; F43.10 Post-traumatic stress disorder, unspecified; E78.5 Hyperlipidemia, unspecified; I10 Essential (primary) hypertension; G25.81 Restless legs syndrome; Z79.899 Other long term (current) drug therapy